=== PATIENT | female | born 1940 | race Two or more races ===

== ENCOUNTER 2020-03-21 05:28 | Day surgery (SDC) | payer OTHER | END 2020-03-21 09:45 | disposition home or self-care (01) | LOC: AMB-ENDOS 05:28 | PROVIDERS: ATTEND Surgery | DX: D12.0 Benign neoplasm of cecum (principal); K64.2 Third degree hemorrhoids; Z20.828 Contact with and (suspected) exposure to other viral communicable diseases; Z12.11 Encounter for screening for malignant neoplasm of colon ==

== ENCOUNTER 2020-04-13 05:30 | Day surgery (SDC) | payer OTHER ==
[~2020-04-13 05:30] MED LIST: COZAAR25 MG PO; LANOXIN125 MCG PO; LOPRESSOR PO; SYNTHROID125 MCG PO; XARELTO20 MG PO
== END 2020-04-13 15:05 | disposition home or self-care (01) ==
LOC: CIR.AMB 05:30
PROVIDERS: ATTEND Surgery
DX: K64.8 Other hemorrhoids (principal); K64.4 Residual hemorrhoidal skin tags; Z20.822 Contact with and (suspected) exposure to COVID-19